=== PATIENT | male | born 1945 | race Hispanic/Latino ===

== ENCOUNTER 2019-11-30 08:42 | Inpatient (IN) | payer MEDICARE ==
[2019-11-30 09:12] LABS: #Eosinphils 0.1 thou/uL (0.0-0.7); #Lymphocytes 2.1 thou/uL (1.20-3.40); #Monocytes 0.6 thou/uL (0.11-0.59); #Neutrophils 5.5 thou/uL (1.40-6.50); %Basophils 0.4 % (0.0-1.0); %Lymphocytes 24.7 % (21.0-51.0); %Monocytes 7.6 % (0.0-10.0); %Neutrophils 66.2 % (42.0-75.0); Hemoglobin 14.8 g/dL (14.0-18.0); Mean Corpuscular HGB CONC 32.3 g/dL (32.0-36.0); Mean Corpuscular Hemoglobin 28.3 pg (27.0-31.0); Mean Corpuscular Volume 87.6 fL (78.0-98.0); Platelet Count 158 thou/uL (130-400); RBC Distribution Width 12.6 % (11.5-14.5); Red Blood Cell (RBC) Count 5.23 mill/uL (4.70-6.10); White Blood Cell (WBC) Count 8.3 thou/uL (4.8-10.8)
[2019-11-30 09:21] LABS: INR-International Normal Ratio 0.8; PTT 28.6 sec (22.9-36.1); Prothrombin Time 11.5 sec (12.0-14.7)
[2019-11-30 09:26] LABS: ALT (SGPT) 22 U/L (8-55); AST (SGOT) 22 U/L (5-34); Albumin 4.1 g/dL (3.4-4.8); Alkaline Phosphatase 65 U/L (40-110); Anion Gap 12 mmol/L (10-20); BUN (Urea Nitrogen) 19 mg/dL (8.4-25.7); Bilirubin, Total 0.7 mg/dL (0.2-1.2); CK (CPK) 201 U/L (30-200); Calc. Creatinine Clearance 0 mL/min (70-130); Calcium 8.6 mg/dL (7.8-10.44); Carbon Dioxide 24 mmol/L (23-31); Chloride 107 mmol/L (98-107); Estimated GFR-MDRD 74; Globulin 2.9 g/dL (2.4-3.5); Glucose 122 mg/dL (83-110); Potassium 3.9 mmol/L (3.5-5.1); Sodium 139 mmol/L (136-145)
[2019-11-30 09:53] LABS: CKMB 4.2 ng/mL (0-6.6)
[2019-11-30 10:00] LABS: Acetaminophen Less than 6.0 mcg/mL (10.0-30.0); Alcohol Less than 10 mg/dL (Less than 10); Salicylate Less than 8.0 mg/dL (15.0-30.0)
--- NOTE | 2019-11-30 10:12 | RAD ---
RADIOGRAPH CHEST 1 VIEW: DATE: 11/30/2019 HISTORY: 74-year-old male with altered mental status. Concern for aspiration. FINDINGS: The thoracic aorta is tortuous and ectatic. There is no evidence of airspace density, pulmonary edema , or pneumothorax. The lateral costophrenic angles are not effaced. IMPRESSION: 1) No acute pulmonary findings. 2) ectasia of thoracic aorta.
[2019-11-30] MEDS ORDERED: Aspirin 325 MG TAB ONE (10:42)
[2019-11-30] MEDS ORDERED: Ondansetron ODT 4 MG TAB PO PRN (12:31)
[2019-11-30] MEDS ORDERED: Acetaminophen 325 MG TAB PO PRN (12:31)
[2019-11-30] MEDS ORDERED: Ondansetron PF 4 MG/2 ML Vial IVP PRN (12:31)
[2019-11-30 12:32] LABS: Troponin I 0.137 ng/mL (< 0.028)
[2019-11-30 12:34] VITALS: BMI 25.8
--- NOTE | 2019-11-30 13:30 | PDOC.HHP ---
Hospitalist HPI - History of Present Illness right leg and arm numbness History of Present Illness: This is a 74 year old male who presented to the hospital with right leg weakness. The patient states he was walking in his house at around 6:00 am and felt that his leg was heavy and he wasn't able to walk properly with his leg. He felt his leg was numb. He also had mild numbness on the arm too which is old from a prior stroke. The patient states that his symptoms resolved after coming to the hospital. He also reported this morning he had difficulty speaking for a few minutes, felt dizzy and had a mild headache. He reports all of these symptoms have now resolved. He denies chest pain, shortness of breath, palpitations. He takes no medications at home. 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 ED Course: The patient presented to the ER with a blood pressure of 139/70. He received aspirin 325 mg in the ER. CT scan was reportedly normal in the ER. Hospitalist ROS - Review of Systems Constitutional: denies: fever, chills Eyes: denies: vision change ENT: denies: ear pain, ear discharge Respiratory: denies: cough, dry, shortness of breath Cardiovascular: denies: chest pain, palpitations, orthopnea Gastrointestinal: denies: nausea, vomiting, abdominal pain, diarrhea Genitourinary: denies: dysuria, frequency Musculoskeletal: denies: neck pain, shoulder pain Hospitalist History - Past Surgical History Other Surgical History: abdomen surgery - Family History Family History: reports: diabetes mellitus - Social History Smoking Status: Former smoker Alcohol: reports: Occassional Drugs: reports: none Living Situation: With Family 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 [employer] - Exam General Appearance: NAD, awake alert Eye: PERRL, anicteric sclera Eye - other findings: appears to have catracts bilaterally ENT: normocephalic atraumatic, no oropharyngeal lesions Neck: no JVD Heart: RRR Respiratory: CTAB, no wheezes, no rales, no ronchi Gastrointestinal: soft, non-tender, non-distended, normal bowel sounds Extremities: no cyanosis, no clubbing, no edema Skin: normal turgor, no lesions, no rashes Neurological: cranial nerve grossly intact, normal sensation to touch, no focal deficits, no new deficit Musculoskeletal: normal tone, normal strength, no muscle wasting Psychiatric: normal affect, normal behavior, A&O x 3, oriented to person Hospitalist Results - Labs Result Diagrams: 11/30/19 08:50 11/30/19 08:50 Lab results: WBC 8.3 thou/uL (4.8-10.8) 11/30/19 08:50 Hgb 14.8 g/dL (14.0-18.0) 11/30/19 08:50 Hct 45.8 % (42.0-52.0) 11/30/19 08:50 MCV 87.6 fL (78.0-98.0) 11/30/19 08:50 Plt Count 158 thou/uL (130-400) 11/30/19 08:50 Neutrophils % 66.2 % (42.0-75.0) 11/30/19 08:50 Sodium 139 mmol/L (136-145) 11/30/19 08:50 Potassium 3.9 mmol/L (3.5-5.1) 11/30/19 08:50 Chloride 107 mmol/L (98-107) 11/30/19 08:50 Carbon Dioxide 24 mmol/L (23-31) 11/30/19 08:50 BUN 19 mg/dL (8.4-25.7) 11/30/19 08:50 Creatinine 0.99 mg/dL (0.7-1.3) 11/30/19 08:50 Glucose 122 mg/dL (83-110) H 11/30/19 08:50 Calcium 8.6 mg/dL (7.8-10.44) 11/30/19 08:50 Total Bilirubin 0.7 mg/dL (0.2-1.2) 11/30/19 08:50 AST 22 U/L (5-34) 11/30/19 08:50 ALT 22 U/L (8-55) 11/30/19 08:50 Alkaline Phosphatase 65 U/L (40-110) 11/30/19 08:50 Creatine Kinase 201 U/L (30-200) H 11/30/19 08:50 CK-MB (CK-2) 4.2 ng/mL (0-6.6) 11/30/19 08:50 Troponin I 0.137 ng/mL (< 0.028) H 11/30/19 11:34 Serum Total Protein 7.0 g/dL (5.8-8.1) 11/30/19 08:50 Albumin 4.1 g/dL (3.4-4.8) 11/30/19 08:50 Hospitalist H&P A/P - Plan Plan: This is 74 year old male with history of prior stroke presenting with right leg weakness and numbness which has now resolved Right leg weakness/numbness likely from TIA- - continue aspirin, start atorvastatin - CT head negative, check MRI brain, consider neuro consult in the morning - check TSH, HbA1C - neurochecks q2 hours initially, then can decrease to q4 Elevated troponin - patient denies chest pain. EKG shows sinus bradycardia. Continue to trend Hyperglycemia - mild at 120, check A1C Systolic Murmur - check ECHO Dispo: pending MRI Brain DVT prophylaxis: lovenox Code status: full code
--- NOTE | 2019-11-30 13:58 | CT ---
CT BRAIN: Date: 11-30-2019 Provided Clinical History: Stroke FINDINGS: Comparison 11-22-13. The ventricular system appears normal in size and morphology. There is no evidence for intracranial h emorrhage or mass effect. The extracranial soft tissues and osseous structures demonstrate an unremar kable MR appearance. IMPRESSION: No evidence for intracranial hemorrhage or mass effect. Findings discussed with Dr. Oneill at 9:06 a.m . 11-30-2019. Code CR
[2019-11-30 15:42] LABS: Troponin I 0.128 ng/mL (< 0.028)
--- NOTE | 2019-11-30 17:46 | MRI ---
MRI OF BRAIN WITHOUT CONTRAST: 11/30/19 INDICATIONS: Right leg and arm numbness. Assess for TIA. COMPARISON: Comparison made to prior MRI brain from 2011. FINDINGS: Ventricles have normal size and position and appears stable from prior exam. Mild cortical volume los s. No significant ischemic white matter change. There is a focal area of restricted diffusion in the left thalamus which would indicate acute/subacut e lacunar infarct. No other restricted diffusion. There is no mass or edema. Intracranial internal carotid arteries, proximal cerebral arteries, and basilar arteries show flow vo ids. IMPRESSION: 1. Focal area of restricted diffusion in the left thalamus consistent with lacunar infarct. 2. MRI of brain otherwise unremarkable. POS: AGW
--- NOTE | 2019-11-30 18:38 | ULT ---
BILATERAL CAROTID DUPLEX ULTRASOUND: 11/30/19 HISTORY: TIA. TECHNIQUE: Dutta scale ultrasound with color flow and spectral Doppler imaging of the extracranial carotid artery system was performed bilaterally. FINDINGS: There is plaque formation noted bilaterally. The peak systolic velocity in the right ICA measures 64 cm/s with an end diastolic velocity of 14 cm/s and systolic ratio of 1.0. The peak systolic velocity in the left ICA measures 92 cm/s with an end diastolic velocity of 26 cm/s and systolic ratio of 1.2. Flow in both vertebral arteries remains antegrade. IMPRESSION: No evidence of a hemodynamically significant stenosis. POS: OFF
[2019-11-30] MEDS: Atorvastatin Calcium 40 MG TAB PO SCH (21:06)
[2019-12-01 05:11] LABS: #Eosinphils 0.2 thou/uL (0.0-0.7); #Lymphocytes 2.3 thou/uL (1.20-3.40); #Monocytes 0.8 thou/uL (0.11-0.59); #Neutrophils 5.3 thou/uL (1.40-6.50); %Basophils 0.3 % (0.0-1.0); %Eosinophils 2.9 % (0.0-10.0); %Lymphocytes 26.9 % (21.0-51.0); %Monocytes 9.2 % (0.0-10.0); %Neutrophils 60.7 % (42.0-75.0); Hemoglobin 14.9 g/dL (14.0-18.0); Mean Corpuscular HGB CONC 33.9 g/dL (32.0-36.0); Mean Corpuscular Hemoglobin 29.4 pg (27.0-31.0); Mean Corpuscular Volume 86.7 fL (78.0-98.0); Platelet Count 157 thou/uL (130-400); RBC Distribution Width 12.5 % (11.5-14.5); Red Blood Cell (RBC) Count 5.05 mill/uL (4.70-6.10); White Blood Cell (WBC) Count 8.7 thou/uL (4.8-10.8)
[2019-12-01 05:35] LABS: Anion Gap 9 mmol/L (10-20); BUN (Urea Nitrogen) 15 mg/dL (8.4-25.7); Calc. Creatinine Clearance 82 mL/min (70-130); Calcium 8.4 mg/dL (7.8-10.44); Carbon Dioxide 27 mmol/L (23-31); Cardiac Risk 3.9 (Less than 4.5); Chloride 105 mmol/L (98-107); Cholesterol 208 mg/dl (< 200 Desired); Estimated GFR-MDRD Greater than 90; Glucose 109 mg/dL (83-110); HDL Cholesterol 54 mg/dL (>60 Neg Risk); LDL Cholesterol, Calculated 130 mg/dL; Potassium 3.8 mmol/L (3.5-5.1); Sodium 137 mmol/L (136-145); Triglycerides 120 mg/dL (Less than 150)
[2019-12-01] MEDS: Enoxaparin Sodium 40 MG/0.4 ML SYRINGE SC SCH (09:14)
[2019-12-01] MEDS: Aspirin 81 mg Enteric Coated Tablet PO SCH (09:15)
--- NOTE | 2019-12-01 12:29 | CON ---
DATE OF CONSULTATION: 12/01/2019 REASON FOR CONSULTATION: Right arm and face paresthesias. HISTORY OF PRESENT ILLNESS: Mr. Lester is a 74-year-old male who presented to the hospital with acute onset right-sided weakness. According to the patient, he was walking in the house around 6 a.m. on 11/30/2019 when he felt his left leg became numb and heavy and he was unable to walk properly. The patient became concerned about stroke, and he decided to come to the emergency room for further evaluation. He also reported an episode during which he had difficulty speaking and felt dizzy with mild headache, but these symptoms resolved on their own. The patient denies nausea, vomiting, headache, chest pain, abdominal pain, loss of vision, or loss of consciousness associated with the episode. The patient at baseline is healthy and does not take any medication. 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 In the emergency room, he was given aspirin and admitted for further evaluation. - Review of Systems Constitutional: denies: fever, chills Eyes: denies: vision change ENT: denies: ear pain, ear discharge Respiratory: denies: cough, dry, shortness of breath Cardiovascular: denies: chest pain, palpitations, orthopnea Gastrointestinal: denies: nausea, vomiting, abdominal pain, diarrhea Genitourinary: denies: dysuria, frequency Musculoskeletal: denies: neck pain, shoulder pain Hospitalist History - Past Surgical History Other Surgical History: abdomen surgery - Family History Family History: reports: diabetes mellitus - Social History Smoking Status: Former smoker Alcohol: reports: Occassional Drugs: reports: none Living Situation: With Family 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 Exam General Appearance: NAD, awake alert Eye: PERRL, anicteric sclera Eye - other findings: appears to have catracts bilaterally ENT: normocephalic atraumatic, no oropharyngeal lesions Neck: no JVD Heart: RRR Respiratory: CTAB, no wheezes, no rales, no ronchi Gastrointestinal: soft, non-tender, non-distended, normal bowel sounds Extremities: no cyanosis, no clubbing, no edema Skin: normal turgor, no lesions, no rashes Neurological: cranial nerve grossly intact, normal sensation to touch, no focal deficits, no new deficit Musculoskeletal: normal tone, normal strength, no muscle wasting Psychiatric: normal affect, normal behavior, A&O x 3, oriented to person cranial nerve grossly intact, normal sensation to touch, no focal deficits, no new deficit 11/30/19 08:50 Lab results: WBC 8.3 thou/uL (4.8-10.8) 11/30/19 08:50 Hgb 14.8 g/dL (14.0-18.0) 11/30/19 08:50 Hct 45.8 % (42.0-52.0) 11/30/19 08:50 MCV 87.6 fL (78.0-98.0) 11/30/19 08:50 Plt Count 158 thou/uL (130-400) 11/30/19 08:50 Neutrophils % 66.2 % (42.0-75.0) 11/30/19 08:50 Sodium 139 mmol/L (136-145) 11/30/19 08:50 Potassium 3.9 mmol/L (3.5-5.1) 11/30/19 08:50 Chloride 107 mmol/L (98-107) 11/30/19 08:50 Carbon Dioxide 24 mmol/L (23-31) 11/30/19 08:50 BUN 19 mg/dL (8.4-25.7) 11/30/19 08:50 Creatinine 0.99 mg/dL (0.7-1.3) 11/30/19 08:50 Glucose 122 mg/dL (83-110) H 11/30/19 08:50 Calcium 8.6 mg/dL (7.8-10.44) 11/30/19 08:50 Total Bilirubin 0.7 mg/dL (0.2-1.2) 11/30/19 08:50 AST 22 U/L (5-34) 11/30/19 08:50 ALT 22 U/L (8-55) 11/30/19 08:50 Alkaline Phosphatase 65 U/L (40-110) 11/30/19 08:50 Creatine Kinase 201 U/L (30-200) H 11/30/19 08:50 CK-MB (CK-2) 4.2 ng/mL (0-6.6) 11/30/19 08:50 Troponin I 0.137 ng/mL (< 0.028) H 11/30/19 11:34 Serum Total Protein 7.0 g/dL (5.8-8.1) 11/30/19 08:50 Albumin 4.1 g/dL (3.4-4.8) 11/30/19 08:50 LABORATORY DATA: Essentially unremarkable. ASSESSMENT AND PLAN: Mr. Lester is a 74-year-old male with history of prior stroke, who presented with left sided weakness and numbness MRI brain reviewed which was consistent with acute infarction in the thalamus. Continue aspirin and start statin for secondary stroke prevention. Neuro checks every 4 hours. . Recommend echocardiogram to rule out cardioembolic source. Check hemoglobin A1c and TSH. Continue home medications. Continue telemetry. Check carotid Dopplers to rule out stenosis. PT/OT/speech. We will continue to follow. Thank you for the consult. Job ID: [id number] MTDD
--- NOTE | 2019-12-01 17:07 | PDOC.HOSPP ---
- Subjective Encounter Date: 12/01/19 Encounter Time: 08:00 Subjective: The patient has no complaints. He denies headaches, dizziness or numbness. No shortness of breath or chest pain while walking. H - Objective Vital Signs & Weight: Vital Signs (12 hours) Temp Pulse Resp BP BP BP Pulse Ox 12/01/19 15:21 98.3 F 60 16 123/60 97 12/01/19 11:32 97.9 F 56 L 16 140/69 97 12/01/19 10:21 139/67 182/82 H 12/01/19 10:15 139/67 182/82 H 12/01/19 07:35 98.5 F 71 17 140/69 97 Weight Weight 155 lb 5 oz I&O: 11/30/19 12/01/19 12/02/19 06:59 06:59 06:59 Intake Total 480 Balance 480 Result Diagrams: 12/01/19 04:37 12/01/19 04:36 Hospitalist ROS - Review of Systems Constitutional: denies: fever, chills - Medication Medications: Active Medications Generic Name Dose Route Start Last Admin Trade Name Raymond PRN Reason Stop Dose Admin Aspirin 81 mg 12/01/19 09:00 12/01/19 09:15 Ecotrin PO 81 mg DAILY LATONYA Administration Atorvastatin Calcium 40 mg 11/30/19 21:00 11/30/19 21:06 Lipitor PO 40 mg HS LATONYA Administration Enoxaparin Sodium 40 mg 12/01/19 09:00 12/01/19 09:14 Lovenox SC 40 mg 0900 LATONYA Administration Sodium Chloride 10 ml 11/30/19 21:00 12/01/19 09:15 Flush - Normal Saline IVF 10 ml Q12HR LATONYA Administration - Exam General Appearance: NAD, awake alert Eye: PERRL, anicteric sclera ENT: normocephalic atraumatic, no oropharyngeal lesions Neck: no JVD Heart: RRR, no gallops, no rubs Heart - other findings: loud systolic murmur Respiratory: CTAB, no wheezes, no rales, no ronchi Gastrointestinal: soft, non-tender, non-distended, normal bowel sounds Hosp A/P - Plan MRI Brain: left thalamus infarct This is 74 year old male with history of prior stroke presenting with right leg weakness and numbness which has now resolved Left thalamus infarct - continue aspirin, start atorvastatin - CT head negative. MRI brain showed left thalamus infarct. Neurology on board - PT and OT have cleared patient Severe aortic stenosis - noted no ECHO, full report pending. Cardiology consult in the am Elevated troponin - patient denies chest pain. EKG shows sinus bradycardia. ECHO shows severe - no chest pain currently Prediabetes - A1C at 6.0. Advise weight loss
[2019-12-01] MEDS: Atorvastatin Calcium 40 MG TAB PO SCH (21:26)
[2019-12-02] MEDS: Aspirin 81 mg Enteric Coated Tablet PO SCH (10:16)
[2019-12-02] MEDS: Enoxaparin Sodium 40 MG/0.4 ML SYRINGE SC SCH (10:16)
--- NOTE | 2019-12-02 10:23 | PQF ---
NOELLE ROMERO Doug HUNTER, [facility] [id number] [facility] [id number] CLINICAL DOCUMENTATION IMPROVEMENT CLARIFICATION FORM: ICD-10 Updated PLEASE DO AN ADDENDUM TO THE PROGRESS NOTE WITH ANY DOCUMENTATION UPDATES OR ADDITIONS AND CARRY THROUGH TO DC SUMMARY. THANK YOU. DATE: 12/02/2019 ATTN: DR. Cassie HARRISON Please exercise your independent, professional judgment in responding to the clarification form. Clinical indicators are provided on the bottom of this form for your review. Please check appropriate box(s): [ ] Type 1 PA (NSTEMI) [ x] Type 2 PA (T2MI) secondary to: [x ] ischemic stroke [ ] demand ischemia [ ] other [ ] Acute non-ischemic myocardial injury in the absence of PA [ ] Unstable Angina [ ] ACS [ ] Other diagnosis [ ] Unable to determine In addition, please specify: Present on Admission (POA): [ ] Yes [ ] No [ ] Unable to determine CLINICAL INDICATORS - SIGNS / SYMPTOMS / LABS / RESULTS AND LOCATION IN EMR 11/29 ED REPORT: FINAL PHYSICIAN DX TIA R/O CVA, ELEVATED TROPONIN 11/29 TROPONIN I 0.149 > 0.137 > 0.128 11/29 H&P (HUNTER) A/P: ELEVATED TROPONIN I - PATIENT DENIES CHEST PAIN. EKG SHOWS SINUS BRADYCARDIA. 11/30 ECHO > LEFT VENTRICULAR SIZE IS NORMAL, EF 60-65%, MODERATE CONCENTRIC LEFT VENTRICULAR HYPERTROPHY, SEVERE AORTIC VALVE STENOSIS, RISK: DX LEFT THALAMUS INFARCT, SEVERE AORTIC STENOSIS (PN/HUNTER) 11/30 TREATMENTS CARDIOLOGY CONSULT ( 11/30 ) ECHO (11/30) THANK YOU! TAMMY (This form is maintained as a part of the permanent medical record) 2014 [employer]. All Rights Reserved [email or web address]
[2019-12-02 12:05] VITALS: TEMP 97.7
--- NOTE | 2019-12-02 12:15 | CON ---
DATE OF CONSULTATION: 12/02/2019 REASON FOR CONSULTATION: Aortic stenosis and cryptogenic stroke. HISTORY OF PRESENT ILLNESS: Mr. Lester is a very pleasant 74-year-old gentleman, who comes to the hospital for symptoms concerning for a stroke. He was evaluated and found to have a thalamic stroke. Echocardiogram was done and was found to have severe aortic stenosis, so Cardiology has been consulted for this. On my evaluation, Mr. Lester denies any chest pain, tightness, pressure. Denies shortness of breath. No syncope or presyncope. PAST MEDICAL HISTORY: 1. History of a heart murmur in the past. 2. Small stroke with deficit in the left hand with numbness in the fourth and fifth digit just about 2 years ago. 3. Shingles. SURGICAL HISTORY: He had abdominal surgery for what he said was a blood clot in his abdomen done in [place] years ago. SOCIAL HISTORY: Former smoker, quit about 10 years ago. No alcohol or drugs. FAMILY HISTORY: Type 2 diabetes, otherwise noncontributory. OUTPATIENT MEDICATIONS: None. ALLERGIES: NO KNOWN DRUG ALLERGIES. REVIEW OF SYSTEMS: A 12-point review of systems was done and was found to be negative other than stated in the History of Present Illness. PHYSICAL EXAMINATION: VITAL SIGNS: Temperature 97.9, pulse 68, respiratory rate 17, saturations 96% on room air, blood pressure 165/78. GENERAL: Awake, alert, and oriented x3. No distress. HEENT: Normocephalic, atraumatic. NECK: Supple. LUNGS: Clear. CARDIOVASCULAR: S1, S2. No S3 or S4. There is a grade 3/6 systolic murmur late-peaking on the right upper sternal border radiated to the rest of the precordium. ABDOMEN: Soft. Positive bowel sounds. EXTREMITIES: No edema. SKIN: Warm and dry. LABORATORY WORK: Reviewed. CBC is unremarkable. Coags are unremarkable. Chemistry showed indeterminate troponins at 0.12, 0.13, 0.14. Triglycerides of 120, cholesterol total of 208, LDL of 130, HDL of 54. Salicylate, acetaminophen, plasma alcohol were all undetectable. EKGs were reviewed, sinus bradycardia. MRI of the brain showed restricted diffusion on the left thalamus consistent with lacunar infarct. MRI of the brain, otherwise unremarkable. CT of the brain showed no evidence of hemorrhage. ASSESSMENT: 1. Acute cerebrovascular accident. 2. Severe aortic stenosis. Aortic valve area is 0.5 cm2 with peak gradient of 100 mmHg and mean gradient of 58 mmHg. 3. Cryptogenic stroke. PLANS: 1. He would be a candidate for a LINQ implantable loop recorder (ILR) to assess for thrombogenic arrhythmias like atrial fibrillation or atrial flutter. He is on the fence as far as getting a LINQ placed. He would like to discuss this with his family. He is going to call his sons and he will let us know. If he agrees to having a LINQ placed, we will place it this afternoon. If not, he may be discharged home with followup in the office with us in 4 weeks. 2. For his aortic stenosis, I recommended replacement and he will need to have a workup with heart catheterization, right and left heart catheterization for further assessment. This is not something we should do in the acute setting of just having had a stroke. We will probably wait a month to reevaluate and do this at that point. I provided a card for him and he will follow up with me in 4 weeks for reassessment and to start to get the process of getting him a new valve. Thank you for letting us to participate in the care of your patient. We will follow. Job ID: [id number]
--- NOTE | 2019-12-02 12:23 | PDOC.HOSPP ---
- Subjective Encounter Date: 12/02/19 Subjective: NEUROLOGY PROGRESS NOTE No acute events overnight. - Objective Vital Signs & Weight: Vital Signs (12 hours) Temp Pulse Resp BP Pulse Ox 12/02/19 12:00 97.7 F 67 16 144/71 H 96 12/02/19 07:46 97.9 F 68 17 165/78 H 96 12/02/19 04:00 98.2 F 55 L 20 124/64 98 Weight Weight 155 lb 5 oz I&O: 12/01/19 12/02/19 12/03/19 06:59 06:59 06:59 Intake Total 600 240 Balance 600 240 Result Diagrams: 12/01/19 04:37 12/01/19 04:36 Radiology Reviewed by me: Yes EKG Reviewed by me: Yes Hospitalist ROS - Review of Systems Constitutional: denies: fever, chills, sweats, weakness, malaise, other Eyes: denies: pain, vision change, conjunctivae inflammation, eyelid inflammation, redness, other ENT: denies: ear pain, ear discharge, nose pain, nose discharge, nose congestion , mouth pain, mouth swelling, throat pain, throat swelling, other Respiratory: denies: cough, dry, shortness of breath, hemoptysis, SOB with excertion, pleuritic pain, sputum, wheezing, other Cardiovascular: denies: chest pain, palpitations, orthopnea, paroxysmal noc. dyspnea, edema, light headedness, other Gastrointestinal: denies: nausea, vomiting, abdominal pain, diarrhea, constipation, melena, hematochezia, other Genitourinary: denies: dysuria, frequency, incontinence, hematuria, retention, other Musculoskeletal: denies: neck pain, shoulder pain, arm pain, back pain, hand pain, leg pain, foot pain, other Skin: denies: rash, lesions, anne, bruising, other Neurological: reports: numbness. denies: weakness, incoordination, change in speech, confusion, seizures, other - Medication Medications: Active Medications Generic Name Dose Route Start Last Admin Trade Name Freq PRN Reason Stop Dose Admin Aspirin 81 mg 12/01/19 09:00 12/02/19 10:16 Ecotrin PO 81 mg DAILY LATONYA Administration Atorvastatin Calcium 40 mg 11/30/19 21:00 12/01/19 21:26 Lipitor PO 40 mg HS LATONYA Administration Enoxaparin Sodium 40 mg 12/01/19 09:00 12/02/19 10:16 Lovenox SC 40 mg 0900 LATONYA Administration Sodium Chloride 10 ml 11/30/19 21:00 12/02/19 10:16 Flush - Normal Saline IVF 10 ml Q12HR LATONYA Administration - Exam General Appearance: awake alert Eye: PERRL ENT: normocephalic atraumatic Neck: supple Heart: RRR Respiratory: CTAB Gastrointestinal: soft Extremities: no cyanosis Skin: normal turgor Neurological: no new deficit Psychiatric: normal affect, normal behavior, A&O x 3, oriented to person, oriented to place, oriented to time Hosp A/P (1) Stroke Code(s): I63.9 - CEREBRAL INFARCTION, UNSPECIFIED Status: Acute (2) Hypertension Code(s): I10 - ESSENTIAL (PRIMARY) HYPERTENSION Status: Acute (3) Severe aortic stenosis Code(s): I35.0 - NONRHEUMATIC AORTIC (VALVE) STENOSIS Status: Acute - Plan PT/OT, speech therapy 74 year old male with acute onset right sided focal paraesthesias. MRI Brain consistent with acute infarction. MRI Brain reviewed and was consistent with acute left thalamic infarct. Carotid dopplers negative for hemodynamically significant stenosis. Neurochecks every 4 hours. Echo showed severe aortic stenosis. Cardiology on board. Neurochecks every 4 hours. Continue aspirin and statin for secondary stroke prevention., Telemetry Continue home medications. Continue medical management per primary team. PT/OT/Speech
[2019-12-02 15:30] VITALS: BP 133/64
--- NOTE | 2019-12-02 21:54 | DIS ---
DATE OF ADMISSION: 11/30/2019 DATE OF DISCHARGE: 12/02/2019 DISCHARGE DIAGNOSES: 1. Acute left thalamus infarct. 2. Severe aortic stenosis. 3. Type [address]-elevation myocardial infarction secondary to stroke. 4. Prediabetes.. CONSULTATIONS: Cardiology with Curtis Cadena MD PROCEDURES PERFORMED: None. BRIEF HISTORY OF PRESENT ILLNESS: This is a 74-year-old male with past medical history of stroke, who presented to the emergency room with right leg weakness and right arm weakness. His symptoms resolved prior to coming to the hospital. According to the [id number], the patient states that both times his symptoms occurred while working out in the hot sun. He received aspirin 325 mg in the ER. CT scan was normal. His symptoms resolved prior to admission. HOSPITAL COURSE: Acute left thalamus infarct/Severe Aortic stenosis The patient had MRI of his brain, which showed a left thalamus infarct. He was started on aspirin and statin. His TSH was normal. His HbA1c was 6.0, which is significant for prediabetes. He was advised to lose weight. He was discharged with aspirin and statin. ECHO showed severe aortic stenosis. Cardiology was consulted and recommended consideration of a valve replacement. He will follow up with the patient in 4 weeks for consideration of this. Cardiology also recommended the patient get a loop recorder placed. After discussion with the patient, the patient declined this procedure because he was concerned about risk of infection. He should follow up with his PCP in a week. DISCHARGE PHYSICAL EXAMINATION: VITAL SIGNS: Temperature 97.7, heart rate 60, respiratory rate 16, O2 saturation 98% on room air, and blood pressure 133/64. GENERAL: The patient is alert, awake, oriented x3. CVS: Regular rate and rhythm with no murmurs with a systolic murmur in the right second intercostal space. LUNGS: Clear to auscultation bilaterally. ABDOMEN: Positive bowel sounds, soft, nontender, and nondistended. EXTREMITIES: No edema. PERTINENT LABORATORY DATA: CBC 11/30: Normal. BMP 11/30: Normal. Lipid panel: Triglyceride 120, cholesterol 208, LDL 130, HDL 54, TSH 1.7385. Troponin I: 0.137, 0.128. Hemoglobin A1c: 6.0. U-tox: Negative. IMAGING: CT brain 11/29: Shows no acute disease. Chest x-ray 11/29: Ectasia of the thoracic aorta. No acute findings. MRI brain 11/29: Shows focal restricted diffusion in the left thalamus consistent with lacunar infarct. Carotid Doppler 11/29: No evidence of a hemodynamically significant stenosis. Echo: Shows severe aortic valve stenosis. EF 60% to 65%. Moderate concentric LVH. Mild to moderate aortic insufficiency. Mild TR. DISCHARGE CONDITION: Stable. ACTIVITY: As tolerated. DIET: Heart healthy diet. DISCHARGE MEDICATIONS: 1. Aspirin 81 mg p.o. daily. 2. Atorvastatin 40 mg p.o. at bedtime. Job ID: [id number] [facility]
== END 2019-12-02 19:39 | disposition home or self-care (01) | DRG 64 ==
LOC: ERS 08:42 → 2SE 12:08 → OBSVTOIN 21:35
PROVIDERS: ADMIT Internal Medicine; ATTEND Internal Medicine
DX: I63.9 Cerebral infarction, unspecified (principal); I21.A1 Myocardial infarction type 2; G81.91 Hemiplegia, unspecified affecting right dominant side; R73.03 Prediabetes; I08.3 Combined rheumatic disorders of mitral, aortic and tricuspid valves; R73.9 Hyperglycemia, unspecified; Z87.891 Personal history of nicotine dependence
CPT/HCPCS: 36415; 36416; 70450; 70551; 71045; 80048; 80053; 80061; 80307; 82550; 82553; 83036; 84443; 84484; 85025; 85610; 85730; 93005; 93306; 93880; J1650

== ENCOUNTER 2020-01-15 08:14 | Outpatient (CLI) | payer MEDICARE, OTHER ==
[2020-01-15 18:24] LABS: #Eosinphils 0.3 thou/uL (0.0-0.7); #Lymphocytes 2.1 thou/uL (1.20-3.40); #Monocytes 0.8 thou/uL (0.11-0.59); #Neutrophils 5.2 thou/uL (1.40-6.50); %Basophils 0.2 % (0.0-1.0); %Eosinophils 4.1 % (0.0-10.0); %Monocytes 9.6 % (0.0-10.0); %Neutrophils 61.1 % (42.0-75.0); Mean Corpuscular HGB CONC 32.3 g/dL (32.0-36.0); Mean Corpuscular Hemoglobin 28.2 pg (27.0-31.0); Mean Corpuscular Volume 87.2 fL (78.0-98.0); Mean Platelet Volume 10.6 fL (7.4-10.4); Platelet Count 129 thou/uL (130-400); RBC Distribution Width 12.4 % (11.5-14.5); Red Blood Cell (RBC) Count 5.31 mill/uL (4.70-6.10); White Blood Cell (WBC) Count 8.5 thou/uL (4.8-10.8)
[2020-01-15 18:38] LABS: ALT (SGPT) 30 U/L (8-55); AST (SGOT) 22 U/L (5-34); Albumin 4.5 g/dL (3.4-4.8); Alkaline Phosphatase 90 U/L (40-110); Anion Gap 11 mmol/L (10-20); BUN (Urea Nitrogen) 14 mg/dL (8.4-25.7); Bilirubin, Direct 0.3 mg/dL (0.1-0.3); Bilirubin, Total 0.7 mg/dL (0.2-1.2); Calc. Creatinine Clearance 0 mL/min (70-130); Calcium 9.6 mg/dL (7.8-10.44); Carbon Dioxide 27 mmol/L (23-31); Cardiac Risk 3.2 (Less than 4.5); Chloride 105 mmol/L (98-107); Cholesterol 172 mg/dl (< 200 Desired); Estimated GFR-MDRD 63; Globulin 2.7 g/dL (2.4-3.5); Glucose 116 mg/dL (83-110); HDL Cholesterol 53 mg/dL (>60 Neg Risk); LDL Cholesterol, Calculated 98 mg/dL; Potassium 4.3 mmol/L (3.5-5.1); Protein, Total 7.2 g/dL (5.8-8.1); Sodium 139 mmol/L (136-145); Triglycerides 103 mg/dL (Less than 150)
[2020-01-16 12:38] LABS: SARS-CoV-2 MS2 Positive; SARS-CoV-2 N Gene Negative; SARS-CoV-2 S Gene Negative; SARS-CoV-2 by NAA Not Detected (NotDetected); SARS-CoV-2 orf1ab Negative
== END 2020-01-15 08:15 | disposition home or self-care (01) ==
LOC: LABBT 08:14
PROVIDERS: ATTEND Internal Medicine Cardiovascular Disease
DX: Z01.812 Encounter for preprocedural laboratory examination (principal); Z11.59 Encounter for screening for other viral diseases
CPT/HCPCS: 80053; 80061; 80076; 85025; U0003; 87635

== ENCOUNTER 2020-01-20 06:13 | Day surgery (SDC) | payer MEDICARE ==
[2020-01-14 11:48] VITALS: BMI 34.0
[2020-01-20] MEDS ORDERED: Iopamidol 370 76% 100 ML VIAL ONE (10:26)
[2020-01-20] MEDS ORDERED: Fentanyl 100 MCG/2 ML VIAL ONE (10:57)
[2020-01-20] MEDS ORDERED: Midazolam HCl 2 mg/2 ml Vial ONE (10:57)
[2020-01-20] MEDS ORDERED: Heparin 10,000 UNITS/1 ML VIAL ONE (11:33)
== END 2020-01-20 14:37 | disposition home or self-care (01) ==
LOC: CCL 06:13
PROVIDERS: ATTEND Internal Medicine Cardiovascular Disease
PROC: 4A023N8 Measurement of Cardiac Sampling and Pressure, Bilateral, Percutaneous Approach (ICD-10-PCS; principal; 2020-01-20)
PROC: B2111ZZ Fluoroscopy of Multiple Coronary Arteries using Low Osmolar Contrast (ICD-10-PCS; 2020-01-20)
DX: I35.0 Nonrheumatic aortic (valve) stenosis (principal); I25.10 Atherosclerotic heart disease of native coronary artery without angina pectoris; I10 Essential (primary) hypertension; Z86.73 Personal history of transient ischemic attack (TIA), and cerebral infarction without residual deficits; Z87.891 Personal history of nicotine dependence; Z79.82 Long term (current) use of aspirin; Z79.899 Other long term (current) drug therapy
CPT/HCPCS: 85347; 93460; 93561; 99152; 99153; J1644; J2250; J3010; Q9967

== ENCOUNTER 2021-02-10 06:21 | Day surgery (SDC) | payer MEDICARE ==
[2021-02-09 10:43] VITALS: BMI 28.8
[2021-02-10 07:30] LABS: Cardiac Risk 3.1 (Less than 4.5)
[2021-02-10] MEDS ORDERED: Lidocaine 1% (PF) 30 ML VIAL ONE (08:04)
[2021-02-10] MEDS ORDERED: Fentanyl 100 MCG/2 ML VIAL ONE (08:39)
[2021-02-10] MEDS ORDERED: Midazolam HCl 2 mg/2 ml Vial ONE (08:40)
[2021-02-10] MEDS ORDERED: Heparin 10,000 UNITS/ 10 ML VIAL ONE (09:17)
== END 2021-02-10 13:18 | disposition home or self-care (01) ==
LOC: CCL 06:21
PROVIDERS: ATTEND Internal Medicine Cardiovascular Disease
PROC: 4A023N8 Measurement of Cardiac Sampling and Pressure, Bilateral, Percutaneous Approach (ICD-10-PCS; principal; 2021-02-10)
PROC: B2011ZZ Plain Radiography of Multiple Coronary Arteries using Low Osmolar Contrast (ICD-10-PCS; 2021-02-10)
DX: I35.0 Nonrheumatic aortic (valve) stenosis (principal); I25.10 Atherosclerotic heart disease of native coronary artery without angina pectoris; I10 Essential (primary) hypertension; Z79.899 Other long term (current) drug therapy; Z87.891 Personal history of nicotine dependence
CPT/HCPCS: 36415; 80061; 85347; 93456; 99152; 99153; J1644; J2001; J2250; J3010

== ENCOUNTER 2021-08-03 09:37 | Outpatient (CLI) | payer MEDICARE ==
[2021-08-03 11:30] LABS: Hemoglobin 13.3 g/dL (13.5-17.5); Mean Corpuscular Volume 90.3 fl (81.2-95.1); Mean Platelet Volume 11.6 fl (7.4-10.4); Platelet Count 184 10x3/uL (150-450); RBC Distribution Width 17.4 % (11.5-14.5); Red Blood Cell (RBC) Count 4.75 10x6/uL (4.32-5.72); White Blood Cell (WBC) Count 6.6 10x3/uL (3.5-10.5)
[2021-08-03 11:41] LABS: Anion Gap 14 mmol/L (10-20); BUN (Urea Nitrogen) 23 mg/dL (8.4-25.7); Calc. Creatinine Clearance 0 mL/min (70-130); Calcium 8.9 mg/dL (7.8-10.44); Carbon Dioxide 31 mmol/L (23-31); Chloride 101 mmol/L (98-107); Glucose 136 mg/dL (83-110); Potassium 4.7 mmol/L (3.5-5.1); Sodium 141 mmol/L (136-145)
[2021-08-03 20:33] LABS: SARS-CoV-2 PCR by NAA Not Detected (NotDetected)
== END 2021-08-03 09:38 | disposition home or self-care (01) ==
LOC: LABBT 09:37
PROVIDERS: ATTEND Thoracic Surgery (Cardiothoracic Vascular Surgery)
DX: Z01.818 Encounter for other preprocedural examination (principal); I51.7 Cardiomegaly; Z20.822 Contact with and (suspected) exposure to COVID-19
CPT/HCPCS: 71046; 80048; 85027; 86850; 86900; 86901; 93005; U0003; U0005; 93010

== ENCOUNTER 2022-08-29 12:23 | Emergency (ER) | payer MEDICARE, MEDICAID ==
[2022-08-29 14:47] LABS: Bilirubin Negative (Negative); Blood, Urine Negative (Negative); Clarity Clear (Clear); Glucose, Urine (Dipstick) Normal (Negative); Ketone, Urine Negative (Negative); Leukocyte Negative Leu/uL (Negative); Nitrite Negative (Negative); Protein, Urine (Dipstick) Negative (Neg-Trace); Specific Gravity, Urine 1.018 (1.002-1.036); Urobilinogen Normal mg/dL (Less than 2)
== END 2022-08-29 14:27 | disposition home or self-care (01) ==
LOC: ERS 12:23
DX: K40.90 Unilateral inguinal hernia, without obstruction or gangrene, not specified as recurrent (principal); Z87.891 Personal history of nicotine dependence
CPT/HCPCS: 81003; 99284

== ENCOUNTER 2022-09-01 20:19 | Inpatient (IN) | payer MEDICARE, MEDICAID ==
[~2022-09-01 20:19] MED LIST: ISOVUE-370 76%-LOCM 1 ML ONE
[2022-09-01] MEDS ORDERED: Ondansetron PF 4 MG/2 ML Vial ONE (20:45)
[2022-09-01] MEDS ORDERED: Morphine 4 MG/ML VIAL ONE (20:45)
[2022-09-01 21:16] LABS: #Eosinphils 0.2 thou/uL (0.0-0.7); #Lymphocytes 1.6 thou/uL (1.20-3.40); #Monocytes 0.9 thou/uL (0.11-0.59); #Neutrophils 7.6 thou/uL (1.40-6.50); %Basophils 0.3 % (0.0-1.0); %Eosinophils 1.6 % (0.0-10.0); %Lymphocytes 15.2 % (21.0-51.0); %Neutrophils 73.9 % (42.0-75.0); Hemoglobin 17.5 g/dL (14.0-18.0); Mean Corpuscular Hemoglobin 29.6 pg (27.0-31.0); Mean Corpuscular Volume 89.7 fl (78.0-98.0); Mean Platelet Volume 8.7 fL (7.4-10.4); Platelet Count 195 10x3/uL (130-400); RBC Distribution Width 12.7 % (11.5-14.5); White Blood Cell (WBC) Count 10.2 10x3/uL (4.8-10.8)
[2022-09-01 21:38] LABS: ALT (SGPT) 25 U/L (8-55); AST (SGOT) 19 U/L (5-34); Albumin 4.2 g/dL (3.4-4.8); Alkaline Phosphatase 78 U/L (40-110); Anion Gap 13 mmol/L (10-20); BUN (Urea Nitrogen) 15 mg/dL (8.4-25.7); Bilirubin, Total 0.7 mg/dL (0.2-1.2); Calc. Creatinine Clearance 0 mL/min (70-130); Calcium 10.2 mg/dL (7.8-10.44); Carbon Dioxide 31 mmol/L (23-31); Chloride 100 mmol/L (98-107); Estimated GFR 90; Globulin 3.4 g/dL (2.4-3.5); Glucose 111 mg/dL (83-110); Lipase 6 U/L (8-78); Potassium 4.1 mmol/L (3.5-5.1); Protein, Total 7.6 g/dL (5.8-8.1); Sodium 140 mmol/L (136-145)
[2022-09-01 22:33] LABS: Bilirubin Negative (Negative); Blood, Urine Negative (Negative); Clarity Clear (Clear); Glucose, Urine (Dipstick) Normal (Negative); Ketone, Urine Negative (Negative); Leukocyte Negative Leu/uL (Negative); Nitrite Negative (Negative); Protein, Urine (Dipstick) Negative (Neg-Trace); Specific Gravity, Urine 1.021 (1.002-1.036); Urobilinogen Normal mg/dL (Less than 2)
[2022-09-02] MEDS ORDERED: Morphine 4 MG/ML VIAL SLOW IVP PRN (01:07)
[2022-09-02] MEDS ORDERED: Dextrose 5 %-0.45 % NaCl 1,000 ML IV SCH (01:15)
[2022-09-02] MEDS ORDERED: Ondansetron PF 4 MG/2 ML Vial IVP PRN ×2 (01:15→09:47)
[2022-09-02] MEDS ORDERED: Acetaminophen 325 MG TAB PO PRN ×2 (01:15→09:47)
[2022-09-02] MEDS ORDERED: Ondansetron ODT 4 MG TAB SL PRN (01:15)
[2022-09-02] MEDS ORDERED: Bupivacaine/Epinephrine 0.25% 30 ML VIAL ONE (07:38)
[2022-09-02] MEDS ORDERED: Morphine 4 MG/ML VIAL ONE (07:39)
[2022-09-02 07:45] VITALS: BMI 24.1
[2022-09-02] MEDS ORDERED: FLU VACC QS2022-23(65YR UP)/PF 240 MCG/0.7 ML SYRINGE IM ONE (08:15)
[2022-09-02] MEDS ORDERED: CEFAZOLIN 2 GM VIAL ONE (08:15)
[2022-09-02] MEDS ORDERED: Sodium Chloride 0.9% 100 ML ONE (08:15)
[2022-09-02] MEDS ORDERED: SUGAMMADEX SODIUM 200 MG/2 ML VIAL ONE (08:16)
[2022-09-02] MEDS ORDERED: fentaNYL PF 100 MCG/2 ML SYRINGE ONE (08:16)
[2022-09-02] MEDS ORDERED: Famotidine/PF 20 mg/2ml Vial ONE (08:16)
[2022-09-02] MEDS ORDERED: Succinylcholine Chloride 100 MG/5 ML SYRINGE FS ONE (08:31)
[2022-09-02] MEDS ORDERED: Rocuronium Bromide 10 MG/ML (10ML VIAL) ONE (08:31)
[2022-09-02] MEDS ORDERED: Ondansetron PF 4 MG/2 ML Vial ONE (08:31)
[2022-09-02] MEDS ORDERED: Lidocaine 1% PF 5 ML VIAL ONE (08:31)
[2022-09-02] MEDS ORDERED: ePHEDrine 50 MG/ML VIAL ONE (08:31)
[2022-09-02] MEDS ORDERED: Glycopyrrolate 0.2 MG/ML 5 ML SYRINGE ONE (08:31)
[2022-09-02] MEDS ORDERED: Nitroglycerin 2% Ointment 1 INCH/1 GM Packet ONE (08:42)
[2022-09-02] MEDS ORDERED: Ondansetron HCl/PF 4 MG/2 ML Vial IVP PRN (09:26)
[2022-09-02] MEDS ORDERED: Ketorolac Tromethamine 30 MG/ML VIAL IVP PRN (09:26)
[2022-09-02] MEDS ORDERED: Promethazine HCl 25 MG/ML VIAL IM PRN ×2 (09:26→09:47)
[2022-09-02] MEDS ORDERED: hydrALAZINE 20 MG/ML VIAL SLOW IVP PRN (09:47)
[2022-09-02] MEDS ORDERED: Dextrose 50% Abboject 50 ML SYRINGE SLOW IVP PRN (09:47)
[2022-09-02] MEDS ORDERED: Ipratropium/Albuterol 3 ML NEB NEB PRN (09:47)
[2022-09-02] MEDS ORDERED: Dextrose 5% in Water 1,000 ML IV PRN (09:47)
[2022-09-02] MEDS: Sodium Chloride 0.9% 1,000 ML IV SCH (10:35)
[2022-09-02] MEDS: HYDROcodone/Acetaminophen 7.5/325 mg Tablet PO PRN ×2 (15:17→20:53)
[2022-09-02] MEDS: Morphine 4 MG/ML VIAL SLOW IVP PRN ×2 (16:35→20:53)
[2022-09-02] MEDS: Famotidine/PF 20 mg/2ml Vial SLOW IVP SCH (20:52)
[2022-09-02] MEDS: Famotidine 20 MG TAB PO SCH (23:58)
[2022-09-03] MEDS: Sodium Chloride 0.9% 1,000 ML IV SCH ×2 (01:20→15:45)
[2022-09-03] MEDS: HYDROcodone/Acetaminophen 7.5/325 mg Tablet PO PRN (01:34)
[2022-09-03] MEDS: Famotidine 20 MG TAB PO SCH (09:23)
[2022-09-03] MEDS: Famotidine/PF 20 mg/2ml Vial SLOW IVP SCH (10:03)
[2022-09-03 15:06] VITALS: BP 120/69; TEMP 98
== END 2022-09-03 15:48 | disposition home or self-care (01) | DRG 352 ==
LOC: ERS 20:19 → SURG A 23:32 → OBSVTOIN 09-02 09:48
PROVIDERS: ADMIT Surgery; ATTEND Surgery
PROC: 0YU50JZ Supplement Right Inguinal Region with Synthetic Substitute, Open Approach (ICD-10-PCS; principal; 2022-09-02)
DX: K40.30 Unilateral inguinal hernia, with obstruction, without gangrene, not specified as recurrent (principal); Z20.822 Contact with and (suspected) exposure to COVID-19; I25.10 Atherosclerotic heart disease of native coronary artery without angina pectoris; Z87.891 Personal history of nicotine dependence; Z79.82 Long term (current) use of aspirin; Z79.899 Other long term (current) drug therapy; Z95.1 Presence of aortocoronary bypass graft
CPT/HCPCS: 36415; 74018; 74177; 80053; 81003; 83605; 83690; 85025; 96374; 96375; 96376; C1781; G0378; J2270; J2405; J3490; J7042; J7050; Q9966; S0028

== ENCOUNTER 2023-06-09 18:32 | Emergency (ER) | payer MEDICAID, MEDICARE, SELFPAY | END 2023-06-09 19:00 | disposition home or self-care (01) | LOC: ERS 18:32 | DX: L29.9 Pruritus, unspecified (principal); Z87.891 Personal history of nicotine dependence | CPT/HCPCS: 99282 ==

== ENCOUNTER 2024-06-09 10:32 | Emergency (ER) | payer MEDICARE ==
[2024-06-09 11:20] LABS: #Basophils Less than 0.03 10x3/uL (0.0-0.2); %Basophils 0.2 % (0.0-1.0); %Eosinophils 1.5 % (0.0-10.0); %Lymphocytes 11.6 % (21.0-51.0); %Monocytes 8.2 % (0.0-10.0); Hematocrit 47.6 % (42.0-52.0); Hemoglobin 15.3 g/dL (14.0-18.0); Mean Corpuscular HGB CONC 32.1 g/dL (32.0-36.0); Mean Corpuscular Hemoglobin 28.6 pg (27.0-31.0); Mean Platelet Volume 10.4 fL (7.4-10.4); Platelet Count 206 10x3/uL (130-400); RBC Distribution Width 13.5 % (11.5-14.5); Red Blood Cell (RBC) Count 5.35 mill/uL (4.70-6.10)
[2024-06-09 12:15] LABS: ALT (SGPT) 17 U/L (8-55); AST (SGOT) 19 U/L (5-34); Albumin 3.4 g/dL (3.4-4.8); Alkaline Phosphatase 73 U/L (40-110); Anion Gap 10 mmol/L (10-20); BUN (Urea Nitrogen) 17 mg/dL (8.4-25.7); Bilirubin, Total 0.6 mg/dL (0.2-1.2); Calc. Creatinine Clearance 0 mL/min (70-130); Calcium 9.3 mg/dL (7.8-10.44); Carbon Dioxide 28 mmol/L (23-31); Chloride 103 mmol/L (98-107); Estimated GFR 76; Glucose 120 mg/dL (83-110); Potassium 3.6 mmol/L (3.5-5.1); Protein, Total 7.4 g/dL (5.8-8.1); Sodium 137 mmol/L (136-145)
[2024-06-09] MEDS ORDERED: Ibuprofen 200 MG TAB ONE (14:10)
== END 2024-06-09 15:54 | disposition home or self-care (01) ==
LOC: ERS 10:32
DX: L03.116 Cellulitis of left lower limb (principal)
CPT/HCPCS: 36415; 80053; 85025; 99283

== ENCOUNTER 2024-06-30 10:30 | Outpatient (CLI) | payer MEDICARE, MEDICAID | END 2024-06-30 10:31 | disposition home or self-care (01) | LOC: RAD 10:30 | PROVIDERS: ATTEND Internal Medicine Critical Care Medicine | DX: R06.00 Dyspnea, unspecified (principal); A15.9 Respiratory tuberculosis unspecified | CPT/HCPCS: 36415; 71046; 80048; 80076 ==

== ENCOUNTER 2025-01-16 13:45 | Emergency (ER) | payer MEDICARE, MEDICAID ==
[2025-01-16] MEDS ORDERED: predniSONE 20 MG TAB ONE (16:04)
== END 2025-01-16 16:18 | disposition home or self-care (01) ==
LOC: ERS 13:45
DX: S43.421A Sprain of right rotator cuff capsule, initial encounter (principal); Z86.73 Personal history of transient ischemic attack (TIA), and cerebral infarction without residual deficits; Z95.5 Presence of coronary angioplasty implant and graft; Z79.82 Long term (current) use of aspirin; X50.1XXA Overexertion from prolonged static or awkward postures, initial encounter
CPT/HCPCS: 99283; J7512

== ENCOUNTER 2025-01-20 10:00 | Outpatient (CLI) | payer MEDICARE, MEDICAID ==
[2025-01-20 12:21] LABS: #Basophils 0.04 10x3/uL (0.0-0.2); #Eosinophils 0.42 10x3/uL (0.0-0.7); #Monocytes 0.54 10x3/uL (0.11-0.59); #Neutrophils 3.59 10x3/uL (1.40-6.50); %Basophils 0.7 % (0.0-1.0); %Eosinophils 7.3 % (0.0-10.0); %Lymphocytes 19.9 % (21.0-51.0); %Monocytes 9.3 % (0.0-10.0); %Neutrophils 62.1 % (42.0-75.0); Hematocrit 40.4 % (42.0-52.0); Hemoglobin 12.7 g/dL (14.0-18.0); Mean Corpuscular Hemoglobin 27.3 pg (27.0-31.0); Mean Corpuscular Volume 86.7 fL (78.0-98.0); Platelet Count 227 10x3/uL (130-400); Red Blood Cell (RBC) Count 4.66 mill/uL (4.70-6.10); White Blood Cell (WBC) Count 5.78 10x3/uL (4.8-10.8)
[2025-01-20 12:56] LABS: ALT (SGPT) 9 U/L (Less than 45); AST (SGOT) 20 U/L (11-34); Albumin 3.3 g/dL (3.1-4.5); Alkaline Phosphatase 70 U/L (40-110); Anion Gap 12 mmol/L (10-20); BUN (Urea Nitrogen) 16 mg/dL (8.4-25.7); Bilirubin, Direct 0.1 mg/dL (0.1-0.3); Bilirubin, Total 0.4 mg/dL (0.3-1.2); Calc. Creatinine Clearance 0 mL/min (70-130); Calcium 8.7 mg/dL (7.8-10.44); Carbon Dioxide 25 mmol/L (23-31); Chloride 105 mmol/L (98-107); Globulin 3.5 g/dL (2.4-3.5); Glucose 94 mg/dL (83-110); Potassium 4.5 mmol/L (3.5-5.1); Sodium 137 mmol/L (136-145)
== END 2025-01-20 10:01 | disposition home or self-care (01) ==
LOC: LABBT 10:00
PROVIDERS: ATTEND Internal Medicine Cardiovascular Disease
DX: Z01.818 Encounter for other preprocedural examination (principal); R94.39 Abnormal result of other cardiovascular function study
CPT/HCPCS: 80053; 80076; 85025; 93005; 93010

== ENCOUNTER 2025-03-11 12:47 | Outpatient (CLI) | payer MEDICARE ==
[2025-03-11 15:03] LABS: #Basophils 0.03 10x3/uL (0.0-0.2); #Eosinophils 0.49 10x3/uL (0.0-0.7); #Monocytes 0.78 10x3/uL (0.11-0.59); #Neutrophils 4.84 10x3/uL (1.40-6.50); %Basophils 0.4 % (0.0-1.0); %Eosinophils 6.5 % (0.0-10.0); %Lymphocytes 17.8 % (21.0-51.0); %Monocytes 10.4 % (0.0-10.0); %Neutrophils 64.6 % (42.0-75.0); Hematocrit 43.8 % (42.0-52.0); Hemoglobin 13.9 g/dL (14.0-18.0); Mean Corpuscular Hemoglobin 27.4 pg (27.0-31.0); Mean Corpuscular Volume 86.2 fL (78.0-98.0); Platelet Count 196 10x3/uL (130-400); Red Blood Cell (RBC) Count 5.08 mill/uL (4.70-6.10); White Blood Cell (WBC) Count 7.49 10x3/uL (4.8-10.8)
[2025-03-11 15:32] LABS: ALT (SGPT) 11 U/L (Less than 45); AST (SGOT) 24 U/L (11-34); Albumin 3.8 g/dL (3.1-4.5); Alkaline Phosphatase 75 U/L (40-110); Anion Gap 15 mmol/L (10-20); BUN (Urea Nitrogen) 11 mg/dL (8.4-25.7); Bilirubin, Total 0.6 mg/dL (0.3-1.2); Calc. Creatinine Clearance 0 mL/min (70-130); Calcium 9.5 mg/dL (7.8-10.44); Carbon Dioxide 25 mmol/L (23-31); Chloride 103 mmol/L (98-107); Globulin 3.6 g/dL (2.4-3.5); Glucose 93 mg/dL (83-110); Potassium 4.1 mmol/L (3.5-5.1); Sodium 139 mmol/L (136-145)
== END 2025-03-11 12:48 | disposition home or self-care (01) ==
LOC: LABBT 12:47
PROVIDERS: ATTEND Internal Medicine Cardiovascular Disease
DX: Z01.818 Encounter for other preprocedural examination (principal); I25.10 Atherosclerotic heart disease of native coronary artery without angina pectoris
CPT/HCPCS: 80053; 85025; 93005; 93010

== ENCOUNTER 2025-03-15 06:26 | Day surgery (SDC) | payer MEDICARE ==
[2025-03-11 12:57] VITALS: BMI 26.6
[2025-03-15] MEDS ORDERED: Iopamidol 370 76% 100 ML VIAL ONE (10:15)
[2025-03-15] MEDS ORDERED: Lidocaine 1% (PF) 30 ML VIAL ONE (12:12)
[2025-03-15] MEDS ORDERED: Adenosine 6 mg (2 mL) VIAL ONE (12:12)
[2025-03-15] MEDS ORDERED: Heparin 10,000 UNITS/ 10 ML VIAL ONE (12:12)
[2025-03-15] MEDS ORDERED: EPINEPHrine 1 MG/10 ML Abboject SYRINGE ONE (12:13)
[2025-03-15] MEDS ORDERED: Nitroglycerin 50 MG/250 ML BOT 0 ML ONE (12:13)
== END 2025-03-15 19:55 | disposition home or self-care (01) ==
LOC: CCL 06:26
PROVIDERS: ATTEND Internal Medicine Cardiovascular Disease
DX: I25.10 Atherosclerotic heart disease of native coronary artery without angina pectoris (principal)
CPT/HCPCS: 85347 ×2; 93005; C1725; C1769 ×4; C1874; C1887 ×2; C9600; J1644; J2250; Q9967; 92928; 99152; 99153; C1984; J0153; J0165; J0461